=== PATIENT | male | born 1965 | race Two or more races ===

== ENCOUNTER 2020-11-21 19:06 | Emergency (ER) | payer OTHER ==
[~2020-11-21] VITALS: Ht 162.6 cm; Wt 64.0 kg
[2020-11-21 19:20] VITALS: BP 113/89
== END 2020-11-21 20:52 | disposition home or self-care (01) ==
LOC: ED 19:30
DX: S60.211A Contusion of right wrist, initial encounter (principal); W26.0XXA Contact with knife, initial encounter; Y93.89 Activity, other specified; Y92.69 Other specified industrial and construction area as the place of occurrence of the external cause; Y99.0 Civilian activity done for income or pay
CPT/HCPCS: 29125; 99283

== ENCOUNTER 2021-01-18 18:29 | Emergency (ER) | payer OTHER ==
[~2021-01-18] VITALS: Ht 162.6 cm; Wt 63.4 kg
--- NOTE | 2021-01-18 18:53 | NUR ---
PT AMBULATED BACK TO ROOM WITHOUT DIFFICULTY. SAME TRIAGE NOTE. ERP AT BS NOW.
[2021-01-18] MEDS ORDERED: IBUPROFEN 200 MG TABLET PO ONE (19:00)
[2021-01-18] MEDS ORDERED: IBUPROFEN 200 MG TABLET ONE (19:07)
[2021-01-18 19:45] VITALS: BP 125/85
--- NOTE | 2021-01-18 20:02 | NUR ---
D/C INSTRUCTIONS, MEDS & F/U APPT RV'WD WITH PT, HE VERBALIZES UNDERSTANDING. INSTRUCTED PT TO F/U WITH OCCUPATIONAL HEALTH TO GET CLEARED FOR WORK. PT AMBULATED OUT OF ED WITHOUT DIFFICULTY.
== END 2021-01-18 20:02 | disposition home or self-care (01) ==
LOC: ED 19:55
DX: S22.32XA Fracture of one rib, left side, initial encounter for closed fracture (principal); W22.8XXA Striking against or struck by other objects, initial encounter; Y93.89 Activity, other specified; Y92.89 Other specified places as the place of occurrence of the external cause; Y99.8 Other external cause status
CPT/HCPCS: 99283